=== PATIENT | female | born 1970 | race American Indian/Alaskan Native ===

== ENCOUNTER 2018-05-03 20:50 | Emergency (ER) | payer OTHER ==
[2018-05-03] MEDS ORDERED: CATAPRES ONE (21:11)
[2018-05-03] MEDS ORDERED: NORCO 5/325 PO ONE (23:53)
--- NOTE | 2018-05-04 00:24 | XRay Report ---
PROCEDURE: XR ANKLE 3+V LT TECHNIQUE: Left ankle radiographs, AP, lateral, and oblique views. HISTORY: ankle pain swelling s/p fall COMPARISONS: None . FINDINGS: Fracture (s) and/or Dislocation(s): There is a nondisplaced fracture of the distal fibula. The tibia is intact. . Alignment: Normal . Joint space(s): Normal . Soft tissues: There is generalized soft tissue swelling. . Bone mineralization: Normal . Foreign bodies: None . Calcaneal spurring: There is a tiny inferior calcaneal spur. . IMPRESSION: Fracture of the distal fibula. . This document is electronically signed by Thompson Chandler MD., May 04 2018 12:21:30 AM ET
--- NOTE | 2018-05-04 00:33 | Emergency Department Report ---
ED Lower Extremity HPI - General Chief Complaint: Extremity Injury, Lower Stated Complaint: LEFT LEG SWOLLEN Time Seen by Provider: 05/03/18 23:48 Source: patient Mode of arrival: Ambulatory Limitations: No Limitations - History of Present Illness MD Complaint: ankle injury Onset/Timin -: hour(s) Injury: Ankle: Right Type of Injury: blunt, inversion Place: home Severity: moderate Severity scale (0 -10): 7 Improves With: nothing Worsens With: weight bearing, movement, palpation Context: fall, direct blow Associated Symptoms: snap/pop sensation. denies: swelling, numbness, tingling Treatments Prior to Arrival: cold therapy, NSAIDS - Related Data Previous Rx's Medication Instructions Recorded Last Taken Type HYDROcodone/ACETAMINOPHEN 1 each PO QID PRN #12 tablet 05/04/18 Unknown Rx [Hydrocodone-Acetamin 5-325 mg] Allergies Allergy/AdvReac Type Severity Reaction Status Date / Time No Known Allergies Allergy Unverified 05/03/18 20:53 ED Review of Systems ROS: Stated complaint: LEFT LEG SWOLLEN Other details as noted in HPI Constitutional: denies: chills, fever Eyes: denies: eye pain, eye discharge, vision change ENT: denies: ear pain, throat pain Respiratory: denies: cough, shortness of breath, wheezing Cardiovascular: denies: chest pain, palpitations Gastrointestinal: denies: abdominal pain, nausea, diarrhea Genitourinary: denies: urgency, dysuria, discharge Musculoskeletal: back pain, joint swelling (right lateral ankle ), arthralgia, myalgia Skin: change in color. denies: rash, lesions Neurological: abnormal gait. denies: headache, weakness, paresthesias, confusion, vertigo Psychiatric: denies: anxiety, depression Hematological/Lymphatic: denies: easy bleeding, easy bruising ED Past Medical Hx - Past Medical History Previous Medical History?: Yes Hx Hypertension: Yes - Surgical History Past Surgical History?: No - Social History Smoking Status: Never Smoker Substance Use Type: None - Medications Home Medications: Home Medications Medication Instructions Recorded Confirmed Last Taken Type HYDROcodone/ACETAMINOPHEN 1 each PO QID PRN #12 tablet 05/04/18 Unknown Rx [Hydrocodone-Acetamin 5-325 mg] ED Physical Exam - General Limitations: No Limitations General appearance: alert, in no apparent distress - Head Head exam: Present: atraumatic, normocephalic, normal inspection - Eye Eye exam: Present: normal appearance, PERRL, EOMI Pupils: Present: normal accommodation - ENT ENT exam: Present: normal exam, normal orophraynx, mucous membranes dry, mucous membranes moist, TM's normal bilaterally - Neck Neck exam: Present: normal inspection, tenderness, meningismus, full ROM, lymphadenopathy - Respiratory Respiratory exam: Present: normal lung sounds bilaterally, accessory muscle use, decreased breath sounds, prolonged expiratory. Absent: respiratory distress, wheezes, rhonchi, chest wall tenderness - Cardiovascular Cardiovascular Exam: Present: regular rate, normal rhythm, normal heart sounds - GI/Abdominal GI/Abdominal exam: Present: soft, tenderness (LLQ ), normal bowel sounds, organomegaly. Absent: distended, guarding, rebound, rigid, mass, pulsatile mass, hernia - Rectal Rectal exam: Present: deferred - Extremities Exam Extremities exam: Present: normal inspection - Back Exam Back exam: Present: normal inspection - Neurological Exam Neurological exam: Present: alert, oriented X3 - Psychiatric Psychiatric exam: Present: normal affect, normal mood - Skin Skin exam: Present: warm, dry, intact, normal color. Absent: rash ED Course Vital Signs 05/03/18 05/03/18 21:03 21:14 Temperature 100.3 F H Pulse Rate 86 82 Respiratory 18 20 Rate Blood Pressure 180/126 Blood Pressure 125/79 [Right] O2 Sat by Pulse 97 98 Oximetry ED Lower Extremity MDM - Radiology Data Radiology results: report reviewed, image reviewed INDINGS: Fracture (s) and/or Dislocation(s): There is a nondisplaced fracture of the distal fibula. The tibia is intact. . Alignment: Normal . Joint space(s): Normal . Soft tissues: There is generalized soft tissue swelling. . Bone mineralization: Normal . Foreign bodies: None . Calcaneal spurring: There is a tiny inferior calcaneal spur. . IMPRESSION: Fracture of the distal fibula. . This document is electronically signed by Zayda Mortensen MD., May 04 2018 12:21:30 AM ET Transcribed By: [place] Dictated By: ZAYDA MORTENSEN MD Electronically Authenticated By: ZAYDA MORTENSEN MD Signed Date/Time: 05/04/18 0024 - Medical Decision Making This is a closed distal fib fracture no deformity nondisplaced plan Short leg crutches follow orthopedic surgery in 2-3 days Motrin when necessary for pain patient will return to ED should symptoms worsen wound check and demonstrate crutch safety prior to discharge patient and family members verbalized agreement and understanding the discharge plan patient will DC home in stable condition at this time Critical care attestation.: If time is entered above; I have spent that time in minutes in the direct care of this critically ill patient, excluding procedure time. ED Disposition Clinical Impression: Closed fracture of distal fibula Qualifiers: Encounter type: initial encounter Fracture morphology: unspecified fracture morphology Laterality: right Qualified Code(s): S82.831A - Other fracture of upper and lower end of right fibula, initial encounter for closed fracture Disposition: [id number]/TX-65 PSY HOSP/PSY UNIT Is pt being admited?: No Does the pt Need Aspirin: No Condition: Stable Instructions: Leg Fracture (ED), Crutch Instructions (ED) Prescriptions: HYDROcodone/ACETAMINOPHEN [Hydrocodone-Acetamin 5-325 mg] 1 each PO QID PRN #12 tablet PRN Reason: Pain , Severe (7-10) Referrals: PRIMARY CARE, [Primary Care Provider] - 3-5 Days RUIZ WHITAKER MD [Staff Physician] - 3-5 Days Forms: Work/School Release Form(ED) Time of Disposition: 00:40
[2018-05-04 07:26] VITALS: BP 138/74
== END 2018-05-04 03:00 ==
LOC: ED 20:50
DX: S82.831A Other fracture of upper and lower end of right fibula, initial encounter for closed fracture (principal); W18.30XA Fall on same level, unspecified, initial encounter; Z91.81 History of falling; Y93.89 Activity, other specified; Y92.89 Other specified places as the place of occurrence of the external cause; Y99.8 Other external cause status